=== PATIENT | male | born 1970 | race Asian ===

== ENCOUNTER 2017-06-25 10:38 | Emergency (ER) | payer OTHER ==
[~2017-06-25] VITALS: Ht 170.2 cm; Wt 103.4 kg
[2017-06-25 10:40] VITALS: BP 124/86
== END 2017-06-25 13:27 | disposition home or self-care (01) ==
LOC: ED 13:05
DX: M47.892 Other spondylosis, cervical region (principal); E11.9 Type 2 diabetes mellitus without complications
CPT/HCPCS: 72050; 99284